=== PATIENT | female | born 1980 | race African-American/Black ===

== ENCOUNTER 2021-12-08 08:05 | Day surgery (SDC) | payer OTHER ==
[~2021-12-08] VITALS: Ht 177.8 cm; Wt 94.3 kg
[~2021-12-08 08:05] MED LIST: LIDOCAINE 1% MDV 20ML VIAL SQ PRN; LR 1,000 ML IV ONE
[2021-12-08 09:05] LABS: HEMATOCRIT 41.8 % (36.0-47.0); HEMOGLOBIN 13.7 g/dl (12.0-15.5); MEAN CORPUSCULAR HEMOGLOBIN 30.7 pg (27.0-33.0); MEAN CORPUSCULAR HGB CONC 32.8 g/dl (32.0-36.5); MEAN CORPUSCULAR VOLUME 93.7 fl (80.0-96.0); PLATELET COUNT, AUTOMATED 349 10^3/uL (150-450); RED BLOOD COUNT 4.46 10^6/uL (4.00-5.40); WHITE BLOOD COUNT 11.2 10^3/uL (4.0-10.0)
[2021-12-08] MEDS ORDERED: LIDOCAINE 2% 100MG/5ML SDV (FOR ANES.) As Ordered ONE (09:24)
[2021-12-08] MEDS ORDERED: ONDANSETRON 4MG/2ML VIAL As Ordered ONE (09:24)
[2021-12-08] MEDS ORDERED: dexameTHASONE 4 MG/ML 1ML VIAL (J1100 PER 1MG) As Ordered ONE (09:24)
[2021-12-08] MEDS ORDERED: ROCURONIUM BROMIDE 50 MG/5 ML VIAL As Ordered ONE (09:24)
[2021-12-08] MEDS ORDERED: propofoL 200 MG/20 ML VIAL As Ordered ONE (09:24)
[2021-12-08 09:36] LABS: HCG, SERUM QUALITATIVE NEGATIVE (NEGATIVE)
[2021-12-08] MEDS ORDERED: fentaNYL 100 MCG/2 ML INJECTION As Ordered ONE ×2 (12:19→13:26)
[2021-12-08] MEDS ORDERED: MIDAZOLAM INJ 2MG/2ML VIAL (J2250 PER 1MG) As Ordered ONE (12:20)
[2021-12-08] MEDS ORDERED: BUPIVACAINE HCL 0.5% 30 ML VIAL As Ordered ONE (12:50)
[2021-12-08] MEDS ORDERED: GLYCOPYRROLATE INJ 0.2 MG/ML 2 ML VIAL As Ordered ONE (13:33)
[2021-12-08] MEDS ORDERED: SUGAMMADEX SODIUM 500 MG/5 ML VIAL (BRIDION) As Ordered ONE (13:47)
[2021-12-08] MEDS ORDERED: fentaNYL 100 MCG/2 ML INJECTION IV PRN (14:40)
[2021-12-08] MEDS ORDERED: ONDANSETRON 4MG/2ML VIAL IV PRN (14:40)
[2021-12-08] MEDS ORDERED: PERCOCET 5MG/325MG TAB PO PRN (14:40)
[2021-12-08] MEDS ORDERED: METOCLOPRAMIDE INJ 10MG/2ML VIAL (J2765 PER 1) IV PRN (14:40)
[2021-12-08] MEDS ORDERED: LR 1,000 ML IV SCH (14:40)
[2021-12-08] MEDS ORDERED: KETOROLAC 30 MG/ML 1ML VIAL IV PRN (14:45)
[2021-12-08 16:23] VITALS: BP 149/84
== END 2021-12-08 16:45 | disposition home or self-care (01) ==
LOC: M SDC 08:05 → EDUNIT# 11:30 → M SDC 16:45
PROVIDERS: ATTEND Obstetrics & Gynecology
DX: Z30.2 Encounter for sterilization (principal); E04.9 Nontoxic goiter, unspecified; J45.909 Unspecified asthma, uncomplicated
CPT/HCPCS: 36415; 58661; 84703; 85027; 86850; 86900; 86901; 88302; J1100; J2250; J2405; J3010

== ENCOUNTER 2022-01-25 09:46 | Day surgery (SDC) | payer OTHER ==
[~2022-01-25] VITALS: Ht 177.8 cm; Wt 97.1 kg
[~2022-01-25 09:46] MED LIST changes: -LIDOCAINE 1% MDV 20ML VIAL SQ PRN
[2022-01-25] MEDS ORDERED: LIDOCAINE 2% 100MG/5ML SDV (FOR ANES.) As Ordered ONE (10:57)
[2022-01-25] MEDS ORDERED: ROCURONIUM BROMIDE 50 MG/5 ML VIAL As Ordered ONE (10:57)
[2022-01-25] MEDS ORDERED: propofoL 200 MG/20 ML VIAL As Ordered ONE (10:57)
[2022-01-25] MEDS ORDERED: MIDAZOLAM INJ 2MG/2ML VIAL (J2250 PER 1MG) As Ordered ONE (10:58)
[2022-01-25] MEDS ORDERED: fentaNYL 100 MCG/2 ML INJECTION As Ordered ONE (10:58)
[2022-01-25] MEDS ORDERED: dexameTHASONE 4 MG/ML 1ML VIAL (J1100 PER 1MG) As Ordered ONE (10:58)
[2022-01-25] MEDS ORDERED: ONDANSETRON 4MG/2ML VIAL As Ordered ONE (10:58)
[2022-01-25] MEDS ORDERED: LIDOCAINE W/EPINEPHRINE 1% 20ML VIAL As Ordered ONE (12:58)
[2022-01-25] MEDS ORDERED: BACITRACIN OINTMENT 30GM TUBE As Ordered ONE (13:52)
[2022-01-25] MEDS ORDERED: KETOROLAC 60MG 2ML VIAL As Ordered ONE (14:14)
[2022-01-25] MEDS ORDERED: fentaNYL 100 MCG/2 ML INJECTION IV PRN (14:15)
[2022-01-25] MEDS ORDERED: ANEXSIA, NORCO 7.5MG/325MG TABLET(HYDROCODONE/APAP) PO PRN (14:15)
[2022-01-25] MEDS ORDERED: ONDANSETRON 4MG/2ML VIAL IV PRN ×2 (14:15)
[2022-01-25] MEDS ORDERED: LR 1,000 ML IV SCH ×2 (14:15)
[2022-01-25] MEDS ORDERED: oxyCODONE 5MG TAB PO PRN (14:15)
[2022-01-25 15:00] VITALS: BP 138/77
== END 2022-01-25 15:42 | disposition home or self-care (01) ==
LOC: M SDC 09:46
PROVIDERS: ATTEND Otolaryngology
DX: L82.1 Other seborrheic keratosis (principal); D23.21 Other benign neoplasm of skin of right ear and external auricular canal; E04.2 Nontoxic multinodular goiter
CPT/HCPCS: 69145; 88304; J1100; J1885; J2250; J2405; J3010

== ENCOUNTER 2022-03-30 06:22 | Day surgery (SDC) | payer OTHER ==
[~2022-03-30] VITALS: Ht 177.8 cm; Wt 98.0 kg
[2022-03-30] MEDS ORDERED: LR 1,000 ML IV SCH ×2 (06:30→09:10)
[2022-03-30] MEDS ORDERED: propofoL 200 MG/20 ML VIAL As Ordered ONE ×2 (07:22→08:39)
[2022-03-30] MEDS ORDERED: GENTAMICIN SULF 80MG/2ML VIAL As Ordered ONE (07:22)
[2022-03-30] MEDS ORDERED: BUPIVACAINE HCL 0.25% 10ML VIAL As Ordered ONE (07:22)
[2022-03-30] MEDS ORDERED: ROCURONIUM BROMIDE 50 MG/5 ML VIAL As Ordered ONE (07:22)
[2022-03-30] MEDS ORDERED: ONDANSETRON 4MG/2ML VIAL As Ordered ONE (07:22)
[2022-03-30] MEDS ORDERED: MIDAZOLAM INJ 2MG/2ML VIAL (J2250 PER 1MG) As Ordered ONE (07:22)
[2022-03-30] MEDS ORDERED: dexameTHASONE 4 MG/ML 1ML VIAL (J1100 PER 1MG) As Ordered ONE (07:22)
[2022-03-30] MEDS ORDERED: LIDOCAINE 2% 100MG/5ML SDV (FOR ANES.) As Ordered ONE (07:22)
[2022-03-30] MEDS ORDERED: fentaNYL 250 MCG/5 ML INJECTION As Ordered ONE (07:22)
[2022-03-30] MEDS ORDERED: BUPIVACAINE LIPOSOME/PF 1.3% 20ML VIAL (13.3MG/ML)(EXPAREL) As Ordered ONE (07:23)
[2022-03-30] MEDS ORDERED: SEVOFLURANE INHAL SOLN 250 ML BTL As Ordered ONE (07:26)
[2022-03-30] MEDS ORDERED: ceFAZolin SOD 2 GM in IV 1 EA IV ONE (07:30)
[2022-03-30] MEDS ORDERED: HEPARIN SOD (PORCINE) 5000UNITS/ML 1ML VIAL/SYRINGE SQ ONE (07:30)
[2022-03-30] MEDS ORDERED: ePHEDrine SULFATE 25 MG/5 ML(5MG/ML) SYRINGE As Ordered ONE (08:03)
[2022-03-30] MEDS ORDERED: ACETAMINOPHEN 1000MG 100ML IV BTL (OFIRMEV) (J0131 PER 10MG) As Ordered ONE (08:24)
[2022-03-30] MEDS ORDERED: fentaNYL 100 MCG/2 ML INJECTION IV PRN (09:10)
[2022-03-30] MEDS ORDERED: HYDROMORPHONE HCL 0.5 MG/ 0.5 ML SYRINGE (J1170 PER 1) IV PRN (09:10)
[2022-03-30] MEDS ORDERED: ONDANSETRON 4MG/2ML VIAL IV PRN (09:10)
[2022-03-30] MEDS ORDERED: oxyCODONE 5MG TAB PO PRN (09:10)
[2022-03-30] MEDS ORDERED: TRAM50TA2 PO (09:41)
[2022-03-30 11:57] VITALS: BP 120/61
== END 2022-03-30 12:32 | disposition home or self-care (01) ==
LOC: M SDC 06:22
PROVIDERS: ATTEND Plastic Surgery Surgery of the Hand
DX: Q83.1 Accessory breast (principal); E04.0 Nontoxic diffuse goiter; J45.909 Unspecified asthma, uncomplicated
CPT/HCPCS: 19120; 88300; C9290; J0131; J0690; J1100; J1580; J1644; J2250; J2405; J3010